=== PATIENT | female | born 1995 ===

== ENCOUNTER → 2024-05-04 | Outpatient (CLI) | payer OTHER ==
[2024-05-04 20:54] LABS: Chlamydia Trachomatis Vaginal NOT DETECTED (NOT DETECT); Neisseria Gonorrhoea Vaginal NOT DETECTED (NOT DETECT)
== END ==
LOC: LAB SHORT 17:06 → LAB 17:06
DX: Z01.419 Encounter for gynecological examination (general) (routine) without abnormal findings (principal)
CPT/HCPCS: 87491; 87591; G0123

== ENCOUNTER 2024-05-29 17:11 | Emergency (ER) | payer OTHER ==
[~2024-05-29] VITALS: Ht 162.6 cm; Wt 59.0 kg
[2024-05-29] MEDS ORDERED: Fluorescein Sod 1MG Opth Strips BOTHEYES ONE (17:25)
[2024-05-29] MEDS ORDERED: Tetracaine HCl/Pf 0.5% Opth Soln 4 ml BOTHEYES ONE (17:25)
== END 2024-05-29 19:40 | disposition home or self-care (01) ==
LOC: ER 17:11
DX: H57.9 Unspecified disorder of eye and adnexa (principal)
CPT/HCPCS: 99282; A9270